=== PATIENT | male | born 1975 | race Hispanic/Latino ===

== ENCOUNTER 2017-03-03 08:26 | Emergency (ER) | payer OTHER, SELFPAY ==
--- NOTE | 2017-03-03 09:01 | RAD ---
RADIOGRAPH CHEST 1 VIEW: HISTORY: 41-year-old male with chest pain. FINDINGS: There are no air space densities, pulmonary edema, pneumothorax, or cardiomegaly. The lateral costop hrenic angles are sharp. IMPRESSION: No acute cardiopulmonary findings. violet [] POS: ANDRE[facility]
[2017-03-03 09:09] LABS: #Basophils 0.1 thou/uL (0.0-0.2); #Lymphocytes 1.8 thou/uL (1.20-3.40); #Monocytes 0.4 thou/uL (0.11-0.59); #Neutrophils 6.2 thou/uL (1.40-6.50); %Basophils 0.6 % (0.0-1.0); %Eosinophils 0.3 % (0.0-10.0); %Lymphocytes 20.8 % (21.0-51.0); %Monocytes 4.3 % (0.0-10.0); %Neutrophils 73.9 % (42.0-75.0); Hemoglobin 15.9 g/dL (14.0-18.0); Mean Corpuscular HGB CONC 33.3 g/dL (32.0-36.0); Mean Corpuscular Hemoglobin 31.6 pg (27.0-31.0); Mean Corpuscular Volume 94.9 fl (80.0-94.0); Mean Platelet Volume 6.5 fL (7.4-10.4); Platelet Count 334 thou/uL (130-400); RBC Distribution Width 11.8 % (11.5-14.5); Red Blood Cell (RBC) Count 5.05 mill/uL (4.70-6.10); White Blood Cell (WBC) Count 8.4 thou/uL (4.8-10.8)
[2017-03-03 09:19] LABS: ALT (SGPT) 20 U/L (8-55); AST (SGOT) 23 U/L (5-34); Alkaline Phosphatase 73 U/L (40-150); Anion Gap 17 mmol/L (10-20); BUN (Urea Nitrogen) 18 mg/dL (8.9-20.6); Bilirubin, Total 1.2 mg/dL (0.2-1.2); Calc. Creatinine Clearance 0 mL/min (70-130); Calcium 10.4 mg/dL (7.8-10.44); Carbon Dioxide 23 mmol/L (22-29); Chloride 102 mmol/L (98-107); Estimated GFR-MDRD 90; Globulin 3.7 g/dL (2.4-3.5); Glucose 123 mg/dL (70-105); Potassium 3.5 mmol/L (3.5-5.1); Protein, Total 8.7 g/dL (6.0-8.3); Sodium 138 mmol/L (136-145)
[2017-03-03 09:23] LABS: CKMB 2.8 ng/mL (0-6.6); Troponin I Less than 0.010 ng/mL (< 0.028)
== END 2017-03-03 12:26 | disposition home or self-care (01) ==
LOC: ERS 08:26
DX: F43.9 Reaction to severe stress, unspecified (principal); F41.9 Anxiety disorder, unspecified
CPT/HCPCS: 71045; 80053; 82553; 84484; 85025; 93005

== ENCOUNTER 2019-03-01 12:25 | Inpatient (IN) | payer SELFPAY ==
[2019-03-01 12:48] LABS: #Basophils 0.1 thou/uL (0.0-0.2); #Lymphocytes 2.8 thou/uL (1.20-3.40); #Monocytes 0.5 thou/uL (0.11-0.59); #Neutrophils 7.2 thou/uL (1.40-6.50); %Basophils 0.7 % (0.0-1.0); %Eosinophils 0.1 % (0.0-10.0); %Lymphocytes 26.4 % (21.0-51.0); %Monocytes 4.8 % (0.0-10.0); %Neutrophils 67.9 % (42.0-75.0); Mean Corpuscular HGB CONC 33.4 g/dL (32.0-36.0); Mean Corpuscular Hemoglobin 30.6 pg (27.0-31.0); Mean Corpuscular Volume 91.6 fL (78.0-98.0); Mean Platelet Volume 6.8 fL (7.4-10.4); Platelet Count 279 thou/uL (130-400); RBC Distribution Width 11.9 % (11.5-14.5); Red Blood Cell (RBC) Count 5.22 mill/uL (4.70-6.10); White Blood Cell (WBC) Count 10.5 thou/uL (4.8-10.8)
--- NOTE | 2019-03-01 12:54 | CT ---
CT Brain WO Con: 03/01/2019 12:39 PM CLINICAL HISTORY: Headache. IMAGING TECHNIQUE: Multiple CT images were obtained of the brain without IV contrast. COMPARISON: None. FINDINGS: Brain: There is a area of hypodensity involving the medial aspect of the right cerebellum suspicious for an acute to subacute cerebellar hemisphere infarct. There is remote infarct involving the anterior left thalamus. No acute intracranial hemorrhage is evident. Ventricles: Normal. No hydrocephalus.. Skull: Intact.. Visualized Paranasal sinuses: Clear.. Mastoid air cells:Clear. Extracranial soft tissues:Normal. IMPRESSION: 1. Acute to subacute infarct involving the medial right cerebellar hemisphere. Follow-up MRI of the b rain is recommended for further characterization. 2. Remote lacunar infarct involving the anterior left thalamus.
[2019-03-01] MEDS ORDERED: Acetaminophen 500 MG TAB ONE (13:02)
[2019-03-01] MEDS ORDERED: Metoclopramide HCl 10 MG/2 ML VIAL ONE (13:03)
[2019-03-01] MEDS ORDERED: diphenhydrAMINE 50 MG/ML VIAL ONE (13:03)
[2019-03-01 13:12] LABS: ALT (SGPT) 26 U/L (8-55); AST (SGOT) 25 U/L (5-34); Albumin 4.9 g/dL (3.5-5.0); Alkaline Phosphatase 77 U/L (40-110); Anion Gap 12 mmol/L (10-20); BUN (Urea Nitrogen) 22 mg/dL (8.9-20.6); Bilirubin, Total 0.6 mg/dL (0.2-1.2); CK (CPK) 258 U/L (30-200); Calc. Creatinine Clearance 0 mL/min (70-130); Calcium 9.3 mg/dL (7.8-10.44); Carbon Dioxide 28 mmol/L (22-29); Chloride 103 mmol/L (98-107); Estimated GFR-MDRD 85; Globulin 3.7 g/dL (2.4-3.5); Glucose 109 mg/dL (70-105); Potassium 3.6 mmol/L (3.5-5.1); Protein, Total 8.6 g/dL (6.0-8.3); Sodium 139 mmol/L (136-145)
[2019-03-01] MEDS ORDERED: Iopamidol 370 76% 100 ML VIAL ONE (13:44)
[2019-03-01] MEDS ORDERED: Clopidogrel Bisulfate 75 MG TAB ONE (13:53)
[2019-03-01] MEDS ORDERED: Magnevist 469MG/ML 20 ML VIAL ONE (14:19)
--- NOTE | 2019-03-01 14:24 | PDOC.FPRHP ---
- History of Present Illness Chief Complaint: dizziness, weakness History of Present Illness: Patient is a 43M with no PMHx that has been experiencing dizziness and weakness for the past 2 weeks. Per the patient he started to have dizziness, lightheadedness, and posterior headache that began 2 weeks ago. He also reports that this is accompanied by weakness. He denies that anything like this has ever happened to him before. He has no stroke hx, no OR hx, and takes no medications. He reports that his headache has been intermittent throughout the last 2 weeks, and has not tried anything to make it better. He also reports that he has some mild chest pain that started after he fell at work 2 days ago because he was dizzy. Denies SOB, abd pain, n/v. ED Course: 300mg plavix, 10mg reglan, 25mg benadryl, 1g tylenol, 1L NS - Allergies/Adverse Reactions Allergies Allergy/AdvReac Type Severity Reaction Status Date / Time No Known Drug Allergies Allergy Verified 12/24/16 21:44 - Home Medications Medication Instructions Recorded Confirmed Type No Known 03/01/19 03/01/19 History - History PMHx: None PSHx: None FHx: No family hx of strokes or OR Social: non smoker, no etoh use, no drug use - Review of Systems General: denies: fever/chills, weight/appetite/sleep changes Eyes: denies: eye pain, vision changes ENT: denies: nasal congestion, rhinorrhea Respiratory: denies: cough, shortness of breath Cardiovascular: reports: chest pain (intermittent, started after falling at work ). denies: edema Gastrointestinal: reports: nausea, vomiting. denies: diarrhea Genitourinary: denies: dysuria, polyuria Skin: denies: lesions, jaundice Musculoskeletal: denies: tenderness, stiffness Neurological: reports: other (dizziness). denies: syncope, seizure Psychological: denies: anxiety, depression - Vital signs BP: [126/79] HR: [77] RR: [18] Tmax: [98.5] Pox: [98]% on [RA] Wt: [65.7kg] - Physical Exam Constitutional: NAD, awake, alert and oriented HEENT: EOMI, MMM Neck: supple, FROM Chest: no-tender to palpation, no lesions Heart: RRR, normal S1/S2 Lungs: CTAB, no wheezing Abdomen: soft, non-tender Musculoskeletal: normal structure, normal tone Neurological: normal sensation, other (slow Dysdiadochokinesia) Skin: no rash/lesions, good turgor Heme/Lymphatic: no unusual bruising or bleeding, no purpura FMR H&P: Results - Labs Result Diagrams: 03/01/19 12:36 03/01/19 12:36 Lab results: WBC 10.5 thou/uL (4.8-10.8) 03/01/19 12:36 Hgb 16.0 g/dL (14.0-18.0) 03/01/19 12:36 Hct 47.8 % (42.0-52.0) 03/01/19 12:36 MCV 91.6 fL (78.0-98.0) 03/01/19 12:36 Plt Count 279 thou/uL (130-400) 03/01/19 12:36 Neutrophils % 67.9 % (42.0-75.0) 03/01/19 12:36 Sodium 139 mmol/L (136-145) 03/01/19 12:36 Potassium 3.6 mmol/L (3.5-5.1) 03/01/19 12:36 Chloride 103 mmol/L (98-107) 03/01/19 12:36 Carbon Dioxide 28 mmol/L (22-29) 03/01/19 12:36 BUN 22 mg/dL (8.9-20.6) H 03/01/19 12:36 Creatinine 0.96 mg/dL (0.7-1.3) 03/01/19 12:36 Glucose 109 mg/dL (70-105) H 03/01/19 12:36 Calcium 9.3 mg/dL (7.8-10.44) 03/01/19 12:36 Total Bilirubin 0.6 mg/dL (0.2-1.2) 03/01/19 12:36 AST 25 U/L (5-34) 03/01/19 12:36 ALT 26 U/L (8-55) 03/01/19 12:36 Alkaline Phosphatase 77 U/L (40-110) 03/01/19 12:36 Creatine Kinase 258 U/L (30-200) H 03/01/19 12:36 Serum Total Protein 8.6 g/dL (6.0-8.3) H 03/01/19 12:36 Albumin 4.9 g/dL (3.5-5.0) 03/01/19 12:36 - EKG Interpretation EKG: NSR - Radiology Interpretation CT scan - head Status: report reviewed by me (R cerebellar infart, remote lacunar infarct anterior L thalamus) FMR H&P: A/P - Problem List (1) Cerebellar stroke Current Visit: Yes Status: Acute Code(s): I63.9 - CEREBRAL INFARCTION, UNSPECIFIED - Plan Patient is a 43M with no PMHx admitted for R cerebellar infarct #R Cerebellar infarct -dizziness, posterior headache x2 weeks -CT head: R cerebellar infarct with remote lacunar anterior L thalamus infarct -FLP, TSH, A1C -started on plavix in ED, but patient is uninsured; will transition to ASA -Brain MRI -CTA Head/Neck -atorvastatin -neurology consult, Dr. Montero, appreciate recs -NPO until bedside swallow -PT/OT Dispo: inpatient for CVA workup, neurology consulted, appreciate recs Code: Full PCP: CC FMR H&P: Upper Level - Plan Date/Time: 03/01/19 1424 IRonen DO, have evaluated this patient and agree with findings/plan as outlined by nutrition intern resident. Pertinent changes/additions are listed here. HPI Mr. Wilder is a 43 yo male presenting to the ED with a 2 week hx of dizziness Today he reports syncope with fall, for the past two weeks he has had nausea associated with dizziness that has not gotten better or worse, he denies any complaints prior to two weeks ago, no chest pain, shortness of breath, fever, chills or vision changes. He has no known pmhx, does not take any daily medications PE General: NAD HEENT: NCAT, no bruits b/l Chest: even inspiratory and expiratory effort, no retractions, CTAB, RRR, no murmurs Abdomen: non distended, NTTP MSK: no weakness, or loss of ROM noted Extremities: non-edematous, pulses present Neuro: CN2-12 intact, normal sensation, strength. Proprioception, reflexes wnl See nutrition intern portion for full ROS, PE, labs and vitals. A/P Posterior cerebellar stroke - CT scan +, no deficits noted besides disequilibrium - cbc, cmp wnl - tsh, flp, echo, cta neck, mri pending - will start asa in am - pt/ot to eval/ treat - npo pending speech eval Dispo: admit to inpt stroke for further risk stratification and treatment, anticipate>48hr stay Addendum - Attending - Attending Attestation Date/Time: 03/01/191919 I personally evaluated the patient and discussed the management with Dr. Leonard I agree with the History, Examination, Assessment and Plan documented above with any addition or exceptions noted below. See my event note for details.
--- NOTE | 2019-03-01 14:59 | PDOC.EVN ---
Addendum - Attending - Attending Attestation Date/Time: 03/01/19 8603 I personally evaluated the patient and discussed the management with Dr. Burgess/ Horacio I agree with the History, Examination, Assessment and Plan documented above with any addition or exceptions noted below. 43 yo HM PMH HTN and limited jose follow up. Presents with 2 day hx of intermittent posterior headache and vertigo. Denies trauma or fall. no prior CVA. Exam remarkable for faint horizontal nystagmus. Labs unremarkable. EKG NSR with no ST changes. CT brain showed right cerebellar CVA and old thalamic infarct. Admit for Cerebellar CVA. MRI brain tomorrow. CTA Head and Neck to evaluate vasculature. TTE for hear evaluation. Stroke team consult. Since outside first 24 hr, treat HTN if indicated. Risk stratify with FLP and A1c. Inpatient, >2 midnights.
[2019-03-01] MEDS ORDERED: Ondansetron ODT 4 MG TAB PO PRN (15:19)
[2019-03-01 15:21] VITALS: BMI 26.3
--- NOTE | 2019-03-01 16:47 | CT ---
INDICATION: Stroke COMPARISON: None Correlation: Brain MRI 03/01/2019 TECHNIQUE: CT angiogram of the head and neck are performed in the axial plane. Three-dimensional refo rmatted images are submitted for interpretation. FINDINGS: CTA OF THE HEAD WITH AND WITHOUT CONTRAST: POSTCONTRAST CT OF BRAIN: Pathologic enhancement: No pathologic enhancement the brain. Loss of king-white matter differentiatio n involving the right cerebellar hemisphere is noted. Postcontrast soft tissue neck CT: Sinuses: Adequate aeration. Orbits: Bilateral ocular lenses are appropriately located. Both globes are intact. Retrobulbar fat is preserved. Symmetric attenuation the optic nerves and ocular rectus muscles. Salivary glands:Symmetric attenuation of the parotid and submandibular glands Thyroid gland: 0.9 x 0.6 cm hypodensity in the right thyroid lobe. Lymph nodes: Upper normal left level 2 lymph node measures 1.0 x 0.9 cm. Enlarged right level 1 lymph node measuring 1.2 x 0.7 cm. Paraspinal muscles: Symmetric attenuation of the sternocleidomastoid muscles. Appropriate attenuation of the paraspinal muscles. Cervical spine:Vertebral body height is maintained. No fracture. Varying degrees of central canal adriana nosis and neural foraminal narrowing due to degenerative change. Limited evaluation by technique. Upper mediastinum and lung apices: Chronic changes lung parenchyma. Incidentals: Periapical lucencies involving multiple right mandibular teeth compatible with periapica l abscess. No evidence of obvious mandibular destruction. CTA OF THE NECK WITH CONTRAST: Aorta: Appropriate enhancement and luminal diameter of the ascending thoracic aorta and aortic arch a nd proximal descending thoracic aorta. Right carotid artery: Right carotid artery origin, common carotid artery, carotid bifurcation and int ernal carotid artery have appropriate enhancement and luminal diameter. Limited evaluation due to motion degradation. Left carotid: Left carotid artery origin, common carotid, carotid bifurcation and internal carotid ar rodri have appropriate and luminal diameter. Limited evaluation due to motion and patient Subclavian arteries:Patent and symmetric Vertebral arteries:Patent throughout the course in the neck and essentially codominant. CTA OF THE BRAIN: Intracranial internal carotid arteries:Appropriate enhancement and luminal diameter Anterior circulation: Diminutive left A1 segment likely due to congenital variant. Bilateral A2 segme nts are unremarkable. Bilateral M1 segments have appropriate enhancement and luminal diameter. Proximal MCA branches are symmetric. Intracranial vertebral arteries: Appropriate enhancement and luminal diameter. Visualized PICA artery origins are unremarkable Posterior circulation: Both vertebral arteries supply a normal appearing basilar artery. No significa nt stenosis or occlusion. Appropriate enhancement and luminal diameter bilateral P1 segments. IMPRESSION: 1. No significant stenosis of the cervical carotid arteries based upon NASCET criteria. 2. Unremarkable anterior circulation at the level [place] of He 3. Unremarkable posterior circulation at the level [place] of He. 4. Findings compatible with known right cerebellar infarct. 5. Nonspecific mildly enlarged lymph nodes.
[2019-03-01] MEDS: Acetaminophen 325 MG TAB PO PRN (17:01)
--- NOTE | 2019-03-01 17:34 | MRI ---
BRAIN MRI WITH AND WITHOUT CONTRAST 03/01/19 COMPARISON: None. HISTORY: Headache, vomiting, assess for a cerebellar infarction. TECHNIQUE: Multiplanar and multisequence MR imaging of the brain is provided with and without contrast. FINDINGS: The axial gradient echo imaging demonstrates no evidence for intracranial hemorrhage. There is a large area of restricted diffusion within the posterior inferior medial aspect of the righ t cerebellar hemisphere consistent with acute infarction on the basis of a right posterior inferior c erebral artery territory infarction. This area of infarction measures at least 3.7 x 3.[address] AP and transverse dimension. There is associated mass effect on the posterior lateral aspect of t he fourth ventricle on the right which is mildly effaced. The area of acute infarction demonstrates i ncreased T2 and FLAIR signal on the basis of cytotoxic edema. Further superiorly within the left occipital lobe there are two smaller areas of acute infarction zackery suring 1.1 cm and 5 mm respectively. These areas of acute infarction also demonstrate mild increased T2 and FLAIR signal on the basis of cytotoxic edema. Postcontrast imaging demonstrates abnormal curvilinear areas of cortically based enhancement of the i nferior medial aspect of the right occipital lobe. This area of abnormal enhancement within the right occipital lobe does not demonstrate restricted diffusion suggesting an area of subacute infarction w ithin the right TUBER MACHINE OPERATOR HELPER territory. Arterial flow voids at the axial level of the skull base appear grossly unremarkable on the T2 weight ed imaging. The imaged paranasal sinuses and mastoid air cells are well aerated. No additional area of abnormal enhancement is noted. IMPRESSION: Prominent area of acute infarction within the inferomedial aspect of the right cerebellar hemisphere suggesting acute right PICA infarction. There are also small foci of acute infarction within the left TUBER MACHINE OPERATOR HELPER territory. Enhancement of the cortex within the occipital lobe on the right suggest subacute rig ht TUBER MACHINE OPERATOR HELPER infarction. These findings suggest multiple posterior circulation infarctions of varying ages. There is related mass effect on the fourth ventricle which is mildly effaced. Close follow-up is thus advised. Stephane Leonard made aware via phone by Dr. Blair at 3:45pm on 03/01/2019. POS: [facility]
[2019-03-01] MEDS: Atorvastatin Calcium 40 MG TAB PO SCH (20:52)
--- NOTE | 2019-03-02 01:22 | CON ---
DATE OF CONSULTATION: 03/01/2019 CONSULTING PHYSICIAN: Hospitalist Service. IMPRESSION: Posterior circulation stroke with occipital and cerebellar lobe damage. PLAN: 1. Aspirin and statin. 2. Echocardiogram. HISTORY OF PRESENT ILLNESS: Mr. Wilder is a previously healthy 43-year-old man, who reports only having a history of headaches. He came in with severe headache with some nausea and dizziness. According to his daughter, he is feeling much better now. His MRI of the brain showed evidence of a cerebellar and left occipital lobe infarct that were acute. His CT angiogram does not show any stenosis. His vital signs have been fine since admission. He has no past history of hypertension, diabetes, hyperlipidemia, tobacco or drug use. He has never had any symptoms like this in the past. He feels like he is back to normal at this point. PAST MEDICAL HISTORY: Otherwise negative. ALLERGIES: NONE REPORTED. SOCIAL HISTORY: No tobacco use. FAMILY HISTORY: Negative for stroke or heart disease. MEDICATION LIST: None. REVIEW OF SYSTEMS: Ten-system review of systems is otherwise negative. PHYSICAL EXAMINATION: GENERAL: He is a healthy-appearing middle-aged man, in no acute distress. VITAL SIGNS: Reviewed and are unremarkable. HEENT: Pupils are equal and reactive. There is no nystagmus present. Conjunctivae clear. Oropharynx clear. NECK: Supple. EXTREMITIES: No cyanosis or edema. NEUROLOGIC: He was alert and cooperative. He followed commands appropriately. His speech was clear and there was no facial asymmetry. He had good strength bilaterally. There was no tremor or dysmetria. Sensation was intact to touch. Gait was not tested. LABORATORY DATA: EKG shows normal sinus rhythm. SUMMARY: Unusual case of a healthy middle-aged man presents with stroke in both the occipital and cerebellar lobes suggesting possible cardioembolic event given that there was no primary thrombus of the posterior cerebral artery. We will review his echocardiogram results, but at this time, we would continue with statin and antiplatelet therapy. Job ID: [id number]
[2019-03-02 04:59] LABS: Hemoglobin A1c 5.9 % (4.0-6.0)
[2019-03-02 05:12] LABS: Cardiac Risk 4.7 (Less than 4.5)
--- NOTE | 2019-03-02 05:47 | PDOC.FM ---
- Subjective Subjective: Patient doing well this morning, reports of some dizziness and a headache but no new deficits. Discussed with patient, through whirley operator, that we are planning on doing an echo today to continue to look for the source for his strokes. Discussed continuation of asa and statin. Patient agreeable with plan of care. - Objective Vital Signs & Weight: Vital Signs (12 hours) Temp Pulse Resp BP Pulse Ox 03/02/19 04:00 98.6 F 66 20 114/70 99 03/02/19 00:00 99.3 F 69 20 121/75 100 03/01/19 20:00 98.3 F 62 20 131/77 97 Weight Weight 67.387 kg I&O: 02/28/19 03/01/19 03/02/19 06:59 06:59 06:59 Intake Total 300 Balance 300 Result Diagrams: 03/01/19 12:36 03/01/19 12:36 EKG Reviewed by me: Yes (sinus 60s-70s) Phys Exam - Physical Examination Constitutional: NAD HEENT: moist MMs, sclera anicteric Neck: supple, full ROM Respiratory: no wheezing, clear to auscultation bilateral Cardiovascular: RRR, no significant murmur Gastrointestinal: soft, non-tender Musculoskeletal: no edema, pulses present Neurological: moves all 4 limbs slow finger-nose and dysdiadochokinesia, though patient can do both Psychiatric: normal affect, A&O x 3 Skin: no rash, normal turgor Dx/Plan (1) Cerebellar stroke Code(s): I63.9 - CEREBRAL INFARCTION, UNSPECIFIED Status: Acute - Plan Plan: Patient is a 43M with no PMHx admitted for R cerebellar infarct #R Cerebellar infarct -dizziness, posterior headache x2 weeks -CT head: R cerebellar infarct with remote lacunar anterior L thalamus infarct -Brain MRI: acute infarct of the R cerebellar hemisphere (acute R PICA), small foci of acute infarction of the L ASSOCIATE PROFESSOR [employer]IA, subacute R [employer]OCIATE PROF[employer]OR [employer] infarction, related mass effect on the 4th ventricle -Neurosurgery consulted, Ezekiel Torres, rec that neurosurgery not be pursued at this time, and does not recommend steroids or other therapies aside from asa and statin at this time -CTA Head/Neck: No significant stenosis of the carotid arteries, unremarkable circulation -FLP: triglycerides 154, total chol 224, LDL 145, HDL 48 -TSH: 1.075 -A1C: 5.9 -started on plavix in ED, but patient is uninsured; transitioned to ASA -atorvastatin -neurology consult, Dr. Montero, appreciate recs -rec continued statin and anticoagulation while the source of the patient's stroke is worked up -PT/OT -echo pending Dispo: inpatient for CVA workup, echo today, will follow Code: Full PCP: CC
[2019-03-02] MEDS: Acetaminophen 325 MG TAB PO PRN ×2 (06:45→15:33)
[2019-03-02] MEDS: Aspirin 325 MG TAB PO SCH (08:54)
--- NOTE | 2019-03-02 11:05 | PRG ---
DATE OF SERVICE: 03/02/2019 This as an addendum to the note of Dr. Ofelia Leonard. I have examined the patient and discussed the case with Dr. Leonard. I agree with her assessment and plan. Mr. Wilder is a pleasant 43-year-old male, who has been admitted with a cerebellar stroke. Thus far, his CTA of the head and neck did not show any occlusions or carotid artery disease. We are awaiting the results of an echocardiogram. Should this also not show a source, it would probably be a good idea to set Mr. Wilder up for a Holter monitor or event recorder in the event that arrhythmia is causing his stroke. I would also recommend to do a thrombophilia workup to make sure he is not having some type of clotting disorder that could lead to stroke. In the event, we are addressing the traditional factors with aspirin and atorvastatin. He has no history of hypertension and his blood pressure now is 123/79. He will likely be ready for discharge in a day or two. Job ID: [id number]
[2019-03-02 12:38] LABS: Prothrombin Time 12.9 SEC (12.0-14.7)
[2019-03-02 12:39] LABS: D-Dimer Test 0.39 *mcg/mL (0.27-0.43)
[2019-03-02 12:59] LABS: Amphetamine Not Detected (NotDetected); Barbiturates Screen Not Detected (NotDetected); Benzodiazepine Screen Not Detected (NotDetected); Cocaine Metabolite Screen Not Detected (NotDetected); Medtox Reader # READER 4; Methadone Not Detected (NotDetected); Methamphetamine Not Detected (NotDetected); Opiate Screen Not Detected (NotDetected); Oxycodone Screen Not Detected (NotDetected); Phencyclidine (PCP) Not Detected (NotDetected); THC/Cannabinoid Screen Not Detected (NotDetected); Tricyclic Screen Not Detected (NotDetected)
[2019-03-02 13:00] LABS: Medtox Control Line Valid? VALID (VALID)
[2019-03-02 15:05] LABS: Cardiolipin IgA Ab 5.7 APL-U/mL (<14 Negative); Cardiolipin IgM Ab 4.9 MPL-U/mL (<10 Negative); EliA APS New Method **** NEW METHOD ****
--- NOTE | 2019-03-02 17:55 | CON ---
DATE OF CONSULTATION: 03/02/2019 REASON FOR CONSULTATION: Acute CVA. HISTORY OF PRESENT ILLNESS: Mr. Wilder is a pleasant 43-year-old gentleman, [place]-speaking mostly, who comes to the hospital for having dizziness and weakness for the past 2 weeks. He has been lightheaded, dizzy with a little headache started about 2 weeks ago. He was admitted and evaluated and was found to have posterior circulation CVA. There is evidence of an acute stroke and some other subacute and more chronic looking strokes in the posterior circulation. Cardiology has been consulted to evaluate cardioembolic sources of this stroke. On my evaluation, Mr. Wildre denies any chest pain, tightness, or pressure. No shortness of breath. No syncope or presyncope. Only the symptoms he presented with which are minimally changed. Dr. Montero evaluated him and diagnosed with a posterior circulation stroke with occipital and cerebellar lobe damage, recommended aspirin and statin. Echocardiogram was done and is pending, but no bubble study was done. PAST MEDICAL HISTORY: None. PAST SURGICAL HISTORY: None. FAMILY HISTORY: No early coronary artery disease or strokes in the family members. SOCIAL HISTORY: No alcohol, tobacco, or drugs. 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 REVIEW OF SYSTEMS: A 12-point review of systems was done and it is all negative unless stated in the history of present illness. OUTPATIENT MEDICATIONS: None. ALLERGIES: NO KNOWN DRUG ALLERGIES. PHYSICAL EXAMINATION: VITAL SIGNS: Temperature 98.1, pulse 77, respiratory rate 16, saturating 98% on room air, and blood pressure 132/85. GENERAL: Awake, alert, oriented x3, and in no distress. HEENT: Normocephalic and atraumatic. NECK: Supple. LUNGS: Clear. CARDIOVASCULAR: S1 and S2. No S3 or S4. No murmurs. No rubs. ABDOMEN: Soft. Positive bowel sounds. EXTREMITIES: No edema. SKIN: Warm and dry. LABORATORY DATA: Laboratory work was reviewed. CBC is unremarkable. Hypercoagulable panel is pending. Chemistries are unremarkable except for a CK of 258. His triglycerides were 154, total cholesterol 224, but LDL only 145 and HDL of 48. UDS was negative for any substances. Toxicology, so far has been negative. CT of the [place] of [place] with contrast showed no significant stenosis. Unremarkable anterior circulation and posterior circulation. There are some findings compatible with known right cerebellar infarct and nonspecific mildly enlarged lymph nodes. ASSESSMENT: Acute CVA. PLAN: 1. Certainly concern for cardioembolic phenomena is high on the list. We will plan on doing a transesophageal echo to evaluate for any shunts. We will do this, hopefully, tomorrow with bubble study. 2. I agree with statin and he will most likely be a candidate for Plavix. 3. We will need some sort of monitoring as an outpatient. We will set it up as an outpatient when he comes back to see us. 4. We spoke at length about the risks and benefits of the transesophageal echo procedure. Risks included, but not limited to damage of the teeth, damage of the vocal cords, a rupture of the esophagus requiring surgical intervention. He verbalized understanding of this and agrees to proceed. 5. More recommendations pending results of transesophageal echo. Job ID: [id number]
[2019-03-02] MEDS: Atorvastatin Calcium 40 MG TAB PO SCH (21:45)
--- NOTE | 2019-03-03 05:33 | PDOC.FM ---
- Subjective Subjective: Pt denies any complaints this morning - no headache, no weakness, no loss of sensation. Pt had a lengthy discussion w/ Dr. Stockton yesterday and has agreed to undergo KEILA and bubble study today. Pt understands the procedure and what we are assessing. He understands he will likely need follow up as an outpt for further assessment of the cause of his CVA. - Objective Vital Signs & Weight: Vital Signs (12 hours) Temp Pulse Resp BP Pulse Ox 03/03/19 04:00 98.6 F 68 16 100/61 98 03/03/19 00:00 98.6 F 76 16 127/83 98 03/02/19 21:50 99 03/02/19 20:00 98.7 F 70 16 122/77 99 Weight Admit Weight 67.387 kg Weight 67.387 kg I&O: 03/01/19 03/02/19 03/03/19 06:59 06:59 06:59 Intake Total 780 Balance 780 Result Diagrams: 03/01/19 12:36 03/01/19 12:36 Phys Exam - Physical Examination Constitutional: NAD HEENT: moist MMs, sclera anicteric Neck: full ROM Respiratory: no wheezing, no rales, no rhonchi, clear to auscultation bilateral Cardiovascular: RRR, no significant murmur, no rub Gastrointestinal: soft, non-tender Musculoskeletal: no edema, pulses present Neurological: non-focal, normal sensation, moves all 4 limbs Psychiatric: normal affect, A&O x 3 Skin: cap refill <2 seconds Dx/Plan (1) Cerebellar stroke Code(s): I63.9 - CEREBRAL INFARCTION, UNSPECIFIED Status: Acute - Plan Plan: Patient is a 43M with no PMHx admitted for R cerebellar infarct Right Cerebellar infarct -CT head: R cerebellar infarct with remote lacunar anterior L thalamus infarct -Brain MRI: acute infarct of the R cerebellar hemisphere (acute R PICA), small foci of acute infarction of the L SAND WORKER, subacute R SAND WORKER infarction, related mass effect on the 4th ventricle -Neurosurgery consulted, Ezekiel Torres, rec that neurosurgery not be pursued at this time, and does not recommend steroids or other therapies aside from asa and statin at this time -CTA Head/Neck: No significant stenosis of the carotid arteries, unremarkable circulation -FLP: triglycerides 154, total chol 224, LDL 145, HDL 48 -TSH: 1.075 -A1C: 5.9 -started on plavix in ED, but patient is uninsured; transitioned to ASA -atorvastatin -neurology consult, Dr. Montero, appreciate recs -rec continued statin and anticoagulation while the source of the patient's stroke is worked up -PT/OT -Cardiology: Dr. Stockton was consulted. Echo performed showing 2/3 diastolic dysfunction. Plans for KEILA and bubble study today to assess for shunt - Likely will need some form of cardiac monitoring as outpt if source not identified Dispo: inpatient for CVA workup, KEILA today, will follow Code: Full PCP: CC Addendum - Attending - Attending Attestation Date/Time: 03/03/19 [id number] I personally evaluated the patient and discussed the management with Dr. Miller I agree with the History, Examination, Assessment and Plan documented above with any addition or exceptions noted below. Patient for KEILA/Bubble study r/o PFO/shunt today.
[2019-03-03] MEDS: Aspirin 325 MG TAB PO SCH (09:11)
--- NOTE | 2019-03-03 16:09 | PDOC.CPN ---
- Subjective Date: 03/03/19 Time: 16:08 Interval history: No new issues. - Review of Systems General: denies: fever/chills, weight/appetite/sleep changes, night sweats, fatigue Respiratory: denies: cough, congestion, shortness of breath, exercise intolerance Cardiovascular: denies: chest pain, palpitation, edema, paroxysmal nocturnal dyspnea, orthopnea Gastrointestinal: denies: nausea, vomiting, diarrhea, constipation, abd pain, GI bleeding Musculoskeletal: denies: pain, tenderness, stiffness, swelling, arthritis/ arthralgias Neurological: denies: numbness, syncope, seizure, weakness - Objective Allergies/Adverse Reactions: Allergies Allergy/AdvReac Type Severity Reaction Status Date / Time No Known Drug Allergies Allergy Verified 03/02/19 08:53 Visit Medications: Current Medications Acetaminophen (Tylenol) 650 mg PO Q4H PRN PRN Reason: Headache/Fever/Mild Pain (1-3) Last Admin: 03/02/19 15:33 Dose: 650 mg Aspirin (Aspirin) 325 mg PO DAILY [facility] Last Admin: 03/03/19 09:11 Dose: 325 mg Atorvastatin Calcium (Lipitor) 40 mg PO HS [facility] Last Admin: 03/02/19 21:45 Dose: 40 mg Ondansetron HCl (Zofran Odt) 4 mg PO Q6H PRN PRN Reason: Nausea/Vomiting Vital Signs & Weight: Vital Signs Temp Pulse Pulse Pulse Resp BP BP 03/03/19 12:00 98.6 F 85 16 03/03/19 10:27 73 77 132/74 143/79 H 03/03/19 08:05 98.4 F 65 16 BP Pulse Ox 03/03/19 12:00 121/71 97 03/03/19 10:27 03/03/19 08:05 111/73 97 Admit Weight 148 lb 9 oz Weight 148 lb 9 oz - Physical Exam General: alert & oriented x3 HEENT: mucus membranes moist Neck: supple neck Cardiac: regular rate and rhythm, no murmur Lungs: normal breath sounds Neuro: no lateralizing findings Abdomen: active bowel sounds Extremities: no edema Skin: clear Musculoskeletal: normal range of motion - Labs Result Diagrams: 03/01/19 12:36 03/01/19 12:36 Troponin/CKMB Troponin I Less than 0.010 ng/mL (< 0.028) 03/01/19 12:36 - Telemetry Sinus rhythms and dysrhythmias: sinus rhythm - Assessment/Plan Assessment/Plan: 1. Acute CVA PLAN: - KEILA to be done tuesday to evaluate for shunts.
[2019-03-03] MEDS: Atorvastatin Calcium 40 MG TAB PO SCH (21:26)
[2019-03-03] MEDS: Acetaminophen 325 MG TAB PO PRN (21:26)
--- NOTE | 2019-03-04 05:41 | PDOC.FM ---
- Subjective Subjective: Pt denies any complaints at this time. States he did not have his KEILA yesterday due to having eaten. No events overnight. Had complained of mild dizziness yesterday - HINTS exam at that time was negative. - Objective Vital Signs & Weight: Vital Signs (12 hours) Temp Pulse Resp BP Pulse Ox 03/04/19 04:00 97.9 F 75 16 120/73 99 03/04/19 00:00 98.1 F 79 16 125/80 99 03/03/19 20:00 98.3 F 76 16 118/75 97 Weight Admit Weight 67.387 kg Weight 67.387 kg I&O: 03/02/19 03/03/19 03/04/19 06:59 06:59 06:59 Intake Total 780 360 Balance 780 360 Result Diagrams: 03/01/19 12:36 03/01/19 12:36 Phys Exam - Physical Examination Constitutional: NAD HEENT: moist MMs, sclera anicteric Neck: full ROM Respiratory: no wheezing, no rales, no rhonchi, clear to auscultation bilateral Cardiovascular: RRR, no significant murmur, no rub Gastrointestinal: soft, non-tender Musculoskeletal: no edema, pulses present Neurological: moves all 4 limbs Psychiatric: normal affect, A&O x 3 Skin: no rash, cap refill <2 seconds Dx/Plan (1) Cerebellar stroke Code(s): I63.9 - CEREBRAL INFARCTION, UNSPECIFIED Status: Acute - Plan Plan: Patient is a 43M with no PMHx admitted for R cerebellar infarct Right Cerebellar infarct -CT head: R cerebellar infarct with remote lacunar anterior L thalamus infarct -Brain MRI: acute infarct of the R cerebellar hemisphere (acute R PICA), small foci of acute infarction of the L RECONCILIATION ANALYST, subacute R RECONCILIATION ANALYST infarction, related mass effect on the 4th ventricle -Neurosurgery consulted, Ezekiel Torres, rec that neurosurgery not be pursued at this time, and does not recommend steroids or other therapies aside from asa and statin at this time -CTA Head/Neck: No significant stenosis of the carotid arteries, unremarkable circulation -neurology consult, Dr. Montero, appreciate recs -rec continued statin and anticoagulation while the source of the patient's stroke is worked up -PT/OT -Cardiology: Dr. Stockton was consulted. Echo performed showing 2/3 diastolic dysfunction. Plans for KEILA and bubble study to assess for shunt tomorrow - Likely will need some form of cardiac monitoring as outpt if source not identified -Telemetry continues to show NSR Dispo: inpatient for CVA workup, KEILA tomorrow, will continue to monitor Code: Full Diet: NPO at midnight PCP: LEANDRA Addendum - Attending - Attending Attestation Date/Time: 03/04/19 0082 I personally evaluated the patient and discussed the management with Dr. Miller I agree with the History, Examination, Assessment and Plan documented above with any addition or exceptions noted below. Further w/u with KEILA is planned. Patient would benefit from balance therapy.
[2019-03-04] MEDS: Aspirin 325 MG TAB PO SCH (09:45)
--- NOTE | 2019-03-04 11:25 | PDOC.CPN ---
- Subjective Date: 03/04/19 Time: 11:24 Interval history: Doing well no new issues. - Review of Systems General: denies: fever/chills, weight/appetite/sleep changes, night sweats, fatigue Respiratory: denies: cough, congestion, shortness of breath, exercise intolerance Cardiovascular: denies: chest pain, palpitation, edema, paroxysmal nocturnal dyspnea, orthopnea Gastrointestinal: denies: nausea, vomiting, diarrhea, constipation, abd pain, GI bleeding Musculoskeletal: denies: pain, tenderness, stiffness, swelling, arthritis/ arthralgias Neurological: denies: numbness, syncope, seizure, weakness - Objective Allergies/Adverse Reactions: Allergies Allergy/AdvReac Type Severity Reaction Status Date / Time No Known Drug Allergies Allergy Verified 03/02/19 08:53 Visit Medications: Current Medications Acetaminophen (Tylenol) 650 mg PO Q4H PRN PRN Reason: Headache/Fever/Mild Pain (1-3) Last Admin: 03/03/19 21:26 Dose: 650 mg Aspirin (Aspirin) 325 mg PO DAILY [facility] Last Admin: 03/04/19 09:45 Dose: 325 mg Atorvastatin Calcium (Lipitor) 40 mg PO HS [facility] Last Admin: 03/03/19 21:26 Dose: 40 mg Ondansetron HCl (Zofran Odt) 4 mg PO Q6H PRN PRN Reason: Nausea/Vomiting Vital Signs & Weight: Vital Signs Temp Pulse Resp BP Pulse Ox 03/04/19 09:42 98.6 F 77 16 120/79 96 03/04/19 04:00 97.9 F 75 16 120/73 99 03/04/19 00:00 98.1 F 79 16 125/80 99 Admit Weight 148 lb 9 oz Weight 148 lb 9 oz - Physical Exam General: alert & oriented x3 HEENT: mucus membranes moist, normocephaly Neck: midline trachea Cardiac: regular rate and rhythm Lungs: clear to auscultation, normal breath sounds Neuro: cranial nerve 2-12 intact Abdomen: active bowel sounds Extremities: no edema Skin: clear Musculoskeletal: no pain - Labs Result Diagrams: 03/01/19 12:36 03/01/19 12:36 Troponin/CKMB Troponin I Less than 0.010 ng/mL (< 0.028) 03/01/19 12:36 - Telemetry Sinus rhythms and dysrhythmias: sinus rhythm - Assessment/Plan Assessment/Plan: 1. Acute CVA PLAN: - KEILA to be done tomorrow to evaluate for shunts.
[2019-03-04] MEDS: Atorvastatin Calcium 40 MG TAB PO SCH (21:21)
[2019-03-04] MEDS: Acetaminophen 325 MG TAB PO PRN (21:21)
--- NOTE | 2019-03-05 06:02 | PDOC.FM ---
- Subjective Subjective: Denies any events overnight or sx this morning. Complains of continued intermittent dizziness and headache during the days. No new sx. Plan for CAESAR today, agreeable with possible DC following procedure pending results. - Objective Vital Signs & Weight: Vital Signs (12 hours) Temp Pulse Resp BP Pulse Ox 03/05/19 00:00 97.6 F 68 14 114/71 99 03/04/19 23:00 98 F 78 14 118/66 98 03/04/19 20:25 98.3 F 66 13 121/77 99 03/04/19 20:00 98 Weight Admit Weight 67.387 kg Weight 67.387 kg I&O: 03/03/19 03/04/19 03/05/19 06:59 06:59 06:59 Intake Total 840 1086 Balance 840 1086 Result Diagrams: 03/01/19 12:36 03/01/19 12:36 Phys Exam - Physical Examination Constitutional: NAD HEENT: moist MMs Neck: full ROM Respiratory: no wheezing, no rales, no rhonchi, clear to auscultation bilateral Cardiovascular: RRR, no significant murmur Gastrointestinal: soft, no distention Musculoskeletal: no edema, pulses present Neurological: moves all 4 limbs Psychiatric: normal affect, A&O x 3 Skin: no rash, cap refill <2 seconds Dx/Plan (1) Cerebellar stroke Code(s): I63.9 - CEREBRAL INFARCTION, UNSPECIFIED Status: Acute - Plan Plan: Right Cerebellar infarct -Neurosurg and neurology recommend asa and statin therapy alone -PT/OT -Cardiology: Dr. Stockton was consulted. Echo performed showing 2/3 diastolic dysfunction. Plans for CAESAR and bubble study to assess for shunt today - Likely will need some form of cardiac monitoring as outpt if source not identified -Telemetry continues to show NSR -Hypercoag panel pending Dispo: inpatient for CVA workup, CAESAR today, will continue to monitor Code: Full Diet: NPO until procedure PCP: CC Addendum - Attending - Attending Attestation Date/Time: 03/05/192004 I personally evaluated the patient and discussed the management with Dr. Miller I agree with the History, Examination, Assessment and Plan documented above with any addition or exceptions noted below. Caesar completed results pending.Patient will benefit from PT balance evaluation Dr Solis PMR et al as outpatient. Appreciate Cardiology recommendations.
[2019-03-05] MEDS ORDERED: Propofol 500 MG/50 ML VIAL ONE (08:39)
[2019-03-05] MEDS: Aspirin 325 MG TAB PO SCH (10:49)
[2019-03-05 11:46] VITALS: BP 109/70; TEMP 98.5
[2019-03-05 13:09] LABS: Protein C Activity 125 % (78-152)
[2019-03-05 13:48] LABS: HEX PHOS LA Tube 1 55.8 SEC; Hexagonal Phospholipid Neut 4.8 SEC (0-8.0)
[2019-03-05] MEDS ORDERED: Lidocaine 1% PF 5 ML VIAL ONE (14:04)
[2019-03-05] MEDS ORDERED: PROPOFOL 200 MG/20 ML VIAL ONE (14:04)
--- NOTE | 2019-03-06 05:21 | DIS ---
DATE OF ADMISSION: 03/01/2019 DATE OF DISCHARGE: 03/05/2019 ADMITTING ATTENDING: Dr. Raciel Riley. DISCHARGE ATTENDING: Dr. Dimitri Hill. RESIDENT: Dr. Oswaldo Miller. CONSULTS: 1. Cardiology, Dr. Freod Stockton. 2. Neurosurgery, Dr. Ezekiel Torres. 3. Neurology, Dr. Jori Montero. PROCEDURES: None. IMAGING: Brain CT without contrast. Findings; acute to subacute infarct involving the medial right cerebellar hemisphere, remote lacunar infarct involving the anterior left thalamus. Brain MRI with and without contrast. Findings; prominent area of acute infarction within the left inferomedial aspect of the right cerebellar hemisphere suggesting acute right PICA infarction. There are also small foci of acute infarction within the left BUSINESS CONTINUITY STRATEGY DIRECTOR territory. Enhancement of the cortex within the occipital lobe on the right side suggests subacute right BUSINESS CONTINUITY STRATEGY DIRECTOR infarction. These findings suggest multiple posterior circulation infarctions of varying ages. There is related mass effect on the fourth ventricle, which is mildly affected. CT [place] with contrast. Findings; no significant stenosis and unremarkable circulation. Echocardiogram; ejection fraction estimated at 55% to 60%, grade 2/3 diastolic dysfunction, trace mitral regurgitation, mild tricuspid regurgitation. Transesophageal echo and bubble study. Findings; no signs of shunt. PRIMARY DIAGNOSIS: Right cerebellar infarction, acute and chronic. DISCHARGE MEDICATIONS: 1. Acetaminophen 650 mg q.4 hours p.r.n. 2. Aspirin 325 mg daily. 3. Atorvastatin 40 mg daily. HISTORY OF PRESENT ILLNESS AND HOSPITAL COURSE: The patient is a 43-year-old male with no past medical history, who presented to the ED with complaints of dizziness, lightheadedness, and a posterior headache that began two weeks ago. CT of the head at that time showed acute to subacute infarction involving the right cerebellar hemispheres and remote lacunar infarcts. The patient received Plavix and was admitted to the stroke floor for continued monitoring and consultation. Neurosurgery was consulted, and Dr. Ezekiel Torres recommended that surgical intervention not be pursued at this time and recommended medical therapy for management. Neurology was also consulted, and Dr. Jori Montero agreed with Neurosurgery recommendations and recommended continued statin and anti-platelet therapy, although source of the patient's stroke was evaluated. Cardiology was consulted, and Dr. Stockton saw the patient and performed a transthoracic echo showing diastolic heart failure with an ejection fraction of 55% to 60%. Telemetry monitoring throughout the patient's stay showed normal sinus rhythm with no signs of dysrhythmia. Dr. Stockton then performed a transesophageal echo and bubble study to evaluate for possible shunts, which also resulted normal. Throughout the patient's stay, the patient continued to experience intermittent posterior headaches that were controlled with Tylenol as well as intermittent dizziness that was worse with standing and ambulation. The patient worked with PT and OT throughout his stay and was ambulating on his own at the time of discharge. The patient agreed to follow up with Cardiology as an outpatient to evaluate for any missed arrhythmias. The patient also agreed to establish with a PCP to obtain referrals for physical therapy on an outpatient basis. DISCHARGE INSTRUCTIONS: LOCATION: Home. DIET: Heart healthy. ACTIVITY: As tolerated. FOLLOWUP: PCP, [facility] within [address] Stockton as indicated. Job ID: [id number]
--- NOTE | 2019-03-06 16:07 | ECHO ---
DATE OF SERVICE: 03/05/19 PREPROCEDURE DIAGNOSIS: The patient is needing a KEILA to evaluate for shunts given his history of strokes. The Anesthesiology department provided with sedation for the patient. Please see their notes for det ails. After adequate sedation was achieved, transesophageal probe was inserted into the mouth and into the esophagus. Multiplanar views were obtained. Left ventricle is normal size, normal wall thickness. Systolic function is normal. Estimated EF at 50-55%. Left atrium is normal sized. Left atrial appendage is normal sized with normal velocities. No mass or thrombus. Right atrium is normal sized. No mass or thrombus. The right ventricle is normal size. Normal systolic function. Aortic valve is structurally normal. Three cusps. No stenosis or regurgitation. Mitral valve is structurally normal. There is only trace MR. Tricuspid valve is structurally normal. There is mild TR. Pulmonary valve is structurally normal. No stenosis or regurgitation. Interatrial septum is intact by color Doppler and by agitated saline study. Thoracic aorta is without atherosclerotic disease. CONCLUSIONS: 1. Normal LV systolic function, EF at 50-55%. 2. No masses or thrombus in any of the cardiac chambers. 3. Agitated saline study is negative for any intracardiac or pulmonary shunts. Thoracic aorta withou t pathology.
--- NOTE | 2019-03-07 07:41 | PQF ---
Oracio Wiledr GRADY *r [id number] CLINICAL DOCUMENTATION CLARIFICATION FORM: POST DISCHARGE Addendum to original discharge summary date: ____ Late entry note date: __ DATE:03/07/2019 ATTN:CHRISTOPHER DAVILA *r Please exercise your independent, professional judgment in responding to the clarification form. Clinical indicators are provided on the bottom of this form for your review Please check appropriate box(s): HEART FAILURE: [ ] Acute diastolic heart failure [ ] Acute on chronic diastolic heart failure [ x] Chronic diastolic heart failure [ ] Other diagnosis [ ] Unable to determine In addition, please specify: Present on Admission (POA): [ x] Yes [ ] No [ ] Unable to determine For continuity of documentation, please document condition throughout progress notes and discharge summary. Thank You. CLINICAL INDICATORS - SIGNS / SYMPTOMS / LABS Echocardiogram: Ejection fraction at 55% to 60 % grade 2/3 diastolic dysfunction , Trace mitral regurgitation , mild tricuspid regurgitation -Documented in Discharge summary on 03/05 by Oswaldo Miller DO Cardiology was consulted and Dr Stockton saw the patient and performed a transesophageal echo showing diastolic heart failure with an EF of 55% to 60%- Documented in Discharge summary on 03/05 by Oswaldo Miller DO RISKS: Stroke in both the occipital and cerebellar lobes suggesting possible cardioembolic event -Documented in consultation on 03/01 by Kylah Fong TREATMENTS: Plan-Aspirin and statin, Echocardiogram Documented in consultation on 03/01 by Kylah Fong Atorvastatin 40 mg daily -Documented in Discharge summary on 03/05 by Oswaldo Miller DO Cardiology was consulted and Dr Stockton-Documented in Discharge summary on 03/05 by Oswaldo Miller DO 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 All Rights Reserved [email or web address] [not provided] MTDD
--- NOTE | 2019-03-10 10:48 | EKG ---
Test Reason : Blood Pressure : / mmHG Vent. Rate : 066 BPM Atrial Rate : 066 BPM P-R Int : 142 ms QRS Dur : 086 ms QT Int : 378 ms P-R-T Axes : 038 033 035 degrees QTc Int : 396 ms Normal sinus rhythm Normal ECG Confirmed by SCOOTER DYER, COBY Strickland ([id number]), rewrite editor GASTON HUMMEL ([id number]) on 03/10/2019 10:48:16 AM Referred By: Confirmed By:COBY HELMS MD
--- NOTE | 2019-03-12 08:08 | PQF ---
Oracio Wilder GRADY *r [id number] CLINICAL DOCUMENTATION CLARIFICATION FORM: POST DISCHARGE related to ischemic CVA Addendum to original discharge summary date: ____ Late entry note date: __ DATE:03/12/2019 ATTN:CHRISTOPHER DAVILA Please exercise your independent, professional judgment in responding to the clarification form. Clinical indicators are provided on the bottom of this form for your review Please check appropriate box(s): [ ] Cerebral edema [ x ] Vasogenic edema [ ] Compression of brain [ ] Other diagnosis [ ] Unable to determine In addition, please specify: Present on Admission (POA): [ x ] Yes [ ] No [ ] Unable to determine For continuity of documentation, please document condition throughout progress notes and discharge summary. Thank You. CLINICAL INDICATORS - SIGNS / SYMPTOMS / LABS Patient presented to the ED with complaints of dizziness lightheadedness and a posterior headache that began two weeks ago-Documented in Discharge summary on 03/05 by Oswaldo Miller DO Brain CT without contrast-Findings acute to subacute infarct involving the medial right cerebellar hemisphere, remote lacunar infarct involving the anterior left thalamus-Documented in Discharge summary on 03/05 by Oswaldo Miller DO Brain MRI with and without contrast:Findings prominent area of acute infraction within the left inferomedial aspect of the right cerebellar hemisphere suggesting acute right PICA infarction. There are also small foci of acute infarction within the left INDUSTRIAL TRAINER territory.There is related mass effect on the fourth ventricle, which is mildly affected-Documented in Discharge summary on by Oswaldo Miller DO Right cerebellar infarction acute on chronic-Documented in Discharge summary on 03/05 by Oswaldo Miller DO RISK FACTORS Right cerebellar infarction acute on chronic-Documented in Discharge summary on 03/05 by Oswaldo Miller DO TREATMENTS: Consults: 1.Cardiology, Dr Fredo Stockton-Documented in Discharge summary on 03/05 by Oswaldo Miller DO 2.Neurosurgery, Dr Ezekiel Torres-Documented in Discharge summary on 03/05 by Oswaldo Miller DO 3.Neurology, Dr Jori Montero-Documented in Discharge summary on 03/05 by Oswaldo Miller DO Brain CT without contrast-Documented in Discharge summary on 03/05 by Oswaldo Miller DO Brain MRI with and without contrast-Documented in Discharge summary on 03/05 by Oswaldo Miller DO Discharge medication: Acetaminophen 650 mg q 4 hours p.r.n,Aspirin 325 mg daily , Atorvastatin 40 mg daily--Documented in Discharge summary on 03/05 by Oswaldo Miller DO 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 All Rights Reserved [email or web address] [not provided] MTDD
== END 2019-03-05 14:07 | disposition home or self-care (01) | DRG 64 ==
LOC: ERS 12:25 → 2SE 13:45
PROVIDERS: ADMIT Family Medicine; ATTEND Family Medicine
DX: I63.9 Cerebral infarction, unspecified (principal); G93.6 Cerebral edema; I50.32 Chronic diastolic (congestive) heart failure; R40.2362 Coma scale, best motor response, obeys commands, at arrival to emergency department; R40.2142 Coma scale, eyes open, spontaneous, at arrival to emergency department; R40.2252 Coma scale, best verbal response, oriented, at arrival to emergency department; I08.1 Rheumatic disorders of both mitral and tricuspid valves
CPT/HCPCS: 36415; 70450; 70496; 70498; 70553; 80053; 80061; 80306; 81240; 81241; 82550; 83036; 83090; 83880; 84443; 84484; 85025; 85240; 85300; 85303; 85305; 85307; 85379; 85598; 85610; 85730; 86147; 93005; 93306; 93312; 96365; 96375; A9579; J1200; J2001; J2704; J2765; Q9967

== ENCOUNTER 2019-04-20 09:44 | Inpatient (IN) | payer SELFPAY ==
[2019-04-20] MEDS ORDERED: Iopamidol-370 76% 500 ML 1 ML ONE (10:08)
--- NOTE | 2019-04-20 10:42 | CT ---
Head CT without contrast 04/20/2019: COMPARISON: 03/01/2019 HISTORY: Altered mental status, prior "strokes", vision changes and right sided headache TECHNIQUE: Axial CT imaging at 5 mm intervals from vertex through skull base without contrast FINDINGS: There is hypodensity within the inferior posterior aspect of the right cerebellar hemispher e, as seen on the prior exam, evidence of prior right-sided cerebellar infarction. There are new areas of loss of king-white differentiation involving bilateral occipital lobes, right more conspicuo us than left, consistent with cytotoxic edema on the basis of acute infarction. The distal aspect of the basilar artery is relatively hyperdense on axial image 7-9 which could represent distal basila r artery thrombus. IMPRESSION: Findings consistent with interval development of acute bilateral posterior cerebral arter y infarction, right more conspicuous than left. Hyperdensity overlies the region of the basilar artery distally, which could signify intra-arterial thrombus. Results called to Dr. Adame at 10:33 AM 04/20/2019.
[2019-04-20 10:51] LABS: #Eosinphils 0.1 thou/uL (0.0-0.7); #Lymphocytes 2.4 thou/uL (1.20-3.40); #Monocytes 0.4 thou/uL (0.11-0.59); #Neutrophils 4.1 thou/uL (1.40-6.50); %Basophils 0.3 % (0.0-1.0); %Eosinophils 0.8 % (0.0-10.0); %Lymphocytes 34.6 % (21.0-51.0); %Monocytes 5.4 % (0.0-10.0); %Neutrophils 58.9 % (42.0-75.0); Hemoglobin 14.3 g/dL (14.0-18.0); Mean Corpuscular HGB CONC 33.9 g/dL (32.0-36.0); Mean Corpuscular Hemoglobin 31.6 pg (27.0-31.0); Mean Corpuscular Volume 93.1 fL (78.0-98.0); Mean Platelet Volume 6.7 fL (7.4-10.4); Platelet Count 253 thou/uL (130-400); RBC Distribution Width 11.9 % (11.5-14.5); Red Blood Cell (RBC) Count 4.53 mill/uL (4.70-6.10)
[2019-04-20 11:23] LABS: ALT (SGPT) 31 U/L (8-55); AST (SGOT) 23 U/L (5-34); Albumin 4.5 g/dL (3.5-5.0); Alkaline Phosphatase 94 U/L (40-110); Anion Gap 13 mmol/L (10-20); BUN (Urea Nitrogen) 12 mg/dL (8.9-20.6); Bilirubin, Total 0.4 mg/dL (0.2-1.2); CK (CPK) 176 U/L (30-200); Calc. Creatinine Clearance 0 mL/min (70-130); Calcium 9.4 mg/dL (7.8-10.44); Carbon Dioxide 27 mmol/L (22-29); Chloride 106 mmol/L (98-107); Estimated GFR-MDRD Greater than 90; Globulin 2.8 g/dL (2.4-3.5); Glucose 103 mg/dL (70-105); Lipase 37 U/L (8-78); Potassium 3.8 mmol/L (3.5-5.1); Protein, Total 7.3 g/dL (6.0-8.3); Sodium 142 mmol/L (136-145)
--- NOTE | 2019-04-20 11:28 | CT ---
CT angiogram of the head: 04/20/2019 COMPARISON: 03/01/2019 HISTORY: Altered mental status, new bilateral posterior cerebral artery infarctions on head CT also p erformed 04/20/2019 TECHNIQUE: Axial CT imaging at 1.25 mm intervals from the skull base through the vertex with IV contr ast using CT angiogram protocol. Coronal and sagittal 3-D reformatted imaging obtained. FINDINGS: The distal vertebral arteries appear patent bilaterally. There is a focal area of contour i rregularity involving the distal right vertebral artery at the axial level of the C1 ring, best seen on axial image 29, sagittal image 36, and coronal image 61. This is stable when compared to the prior examination and may be related to focal atherosclerotic disease or vertebral artery dissection. The basilar artery is patent. No arterial filling defect is seen within the basilar artery. The poste rior cerebral arteries appear severely attenuated distally with probable bilateral distal BATCH STILL OPERATOR artery occlusion, correlating with the areas of interval development of probable infarction on recent CT. The visualized cervical ICA is patent. The A1 segment on the left is hypoplastic. Right A1 segment is patent. The distal anterior cerebral a rtery branches appear patent. The M1 segment appears patent and distal MCA branches appear unremarkable. No saccular aneurysm, high -grade stenosis, or vascular occlusion is seen involving the anterior circulation. IMPRESSION: Distal bilateral posterior cerebral arteries are markedly attenuated and likely occluded distally bilaterally, corresponding with the areas of concern for acute infarction within the posterior BATCH STILL OPERATOR territories on recent CT. Recommend brain MRI with and without contrast for further ass essment. There is no evidence for arterial thrombus within the basilar artery. There is mild irregularity of the distal vertebral artery on the right at the axial level of the C1 r ing. This could be related to an area of vertebral artery dissection. This appears similar when compared to prior imaging.
[2019-04-20] MEDS ORDERED: Ondansetron ODT 4 MG TAB SL PRN (12:00)
[2019-04-20] MEDS ORDERED: Ondansetron PF 4 MG/2 ML Vial IVP PRN ×2 (12:00→16:18)
[2019-04-20] MEDS ORDERED: Aspirin 325 MG TAB ONE (12:12)
[2019-04-20] MEDS ORDERED: Clopidogrel Bisulfate 75 MG TAB ONE (12:13)
[2019-04-20 12:14] LABS: Bilirubin Negative (Negative); Blood, Urine Negative (Negative); Clarity Clear (Clear); Glucose, Urine (Dipstick) Normal (Negative); Leukocyte Negative Leu/uL (Negative); Nitrite Negative (Negative); Protein, Urine (Dipstick) Negative (Neg-Trace); Urobilinogen Normal mg/dL (Less than 2)
--- NOTE | 2019-04-20 15:05 | HP ---
CHIEF COMPLAINT: Disorientation and visual problem, new onset. HISTORY OF PRESENT ILLNESS: The patient is a 43-year-old male, who had a new stroke in his brain in February and he was doing relatively well until a few days ago when he started having some problem with his vision and showing some disorientation in relatively familiar places, which was very new to him. 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 The family thought that maybe he was exposed to some chemical during this painting and they were hoping that this is going to get better or improve but it did not. Apparently he went to the architectural engineer and had a dilated eye examination and it was found that he had significant visual loss. He went to a [facility] on [facility] in [place]. He does not have any other complaints to offer. He does not have any weakness. He is able to eat. There is no any problem with his speech. PAST MEDICAL HISTORY: Positive only for previous CVA, cerebellar infarct. PAST SURGICAL HISTORY: None. FAMILY HISTORY: parents do not live in the [place] and he does not really know whether they have any medical problems. SOCIAL HISTORY: He does not smoke. He does not drink. He does not use any illicit drugs. ALLERGIES: NONE. PRIMARY CARE PHYSICIAN: Dr. Araya. Surrogate decision maker is his daughter, Aliza Short. REVIEW OF SYSTEMS: All 14 systems were reviewed and they were negative except for right-sided headaches, mainly in hoahaoism area. PHYSICAL EXAMINATION: VITAL SIGNS: Blood pressure is 117/82, pulse is 72, respirations 16, temperature is 98.2, O2 saturation 100% on room air. HEENT: His head is atraumatic and normocephalic. Eyes are PERRLA. Sclerae are nonicteric. Oral mucosa is moist. NECK: Supple. LUNGS: Clear. HEART: S1, S2 normal. No S3. No S4. No any murmur. ABDOMEN: Soft, nontender, nondistended. Bowel sounds are present. No organomegaly. EXTREMITIES: No clubbing, cyanosis, or edema. NEUROLOGIC: He is alert and oriented x4. There is no any motor or sensory deficits present. Cranial nerves are intact. Visual forman difficult to assess, but it looks like they are diminished in both eyes peripherally. SKIN: No rash or erythema. LABORATORY DATA: White count of 7.0, hemoglobin of 14.3, hematocrit 42.2, platelet count is 253,000. Normal chemistry. Troponin less than 0.010. Normal kidney function. Urinalysis within normal limits. EKG showed normal sinus rhythm with no ischemic changes, ventricular rate 83, personally reviewed by me. Brain CT was also personally reviewed by me. It showed acute bilateral posterior cerebral artery infarction, right more conspicuous than left; hyperdensity overlies the region of the basilar artery distally which could signify intra-arterial thrombus. CT of the venetie of He angiogram with contrast showed distal bilateral posterior cerebral arteries a markedly attenuated and likely occluded distally bilaterally corresponding with the areas of concern for acute infarction within the posterior FACILITY WORKER territories on recent CT. There was no evidence for any arterial thrombus within the basilar artery. There was mild irregularity of the distal vertebral artery on the right at the axial level of C1 ring. IMPRESSION: 1. Acute bilateral cerebrovascular accident. 2. History of cerebral CVA a few weeks ago. PLAN: Full admission to Stroke Unit. Condition is fair. Activity, bedrest and bathroom privileges with assistance. IV Hep-Lock. The case was discussed with emergency room doctor, . Apparently, he talked to Dr. Caraballo, interventional neurosurgeon who did not recommend any intervention at this point. He was started on a Plavix. We will continue Plavix and aspirin. He was given 75 mg of Plavix and 324 mg of aspirin. He was given 500 mL of sodium chloride 0.9% intravenously. We will do DVT prophylaxis with SCDs and we will get the neurologist on-call, Dr. Montero consulted, and we will continue his statin he was taking at home. Job ID: [id number]
[2019-04-20] MEDS ORDERED: D5 1/2 NS w/20 mEq KCL 1,000 ML IV SCH (16:15)
[2019-04-20] MEDS ORDERED: Acetaminophen 325 MG TAB PO PRN (16:18)
[2019-04-20 16:50] VITALS: BMI 25.4
[2019-04-20] MEDS: Atorvastatin Calcium 40 MG TAB PO SCH (21:43)
[2019-04-21 05:22] LABS: #Eosinphils 0.2 thou/uL (0.0-0.7); #Lymphocytes 2.5 thou/uL (1.20-3.40); #Monocytes 0.5 thou/uL (0.11-0.59); #Neutrophils 4.2 thou/uL (1.40-6.50); %Basophils 0.2 % (0.0-1.0); %Eosinophils 2.2 % (0.0-10.0); %Lymphocytes 34.3 % (21.0-51.0); %Monocytes 6.9 % (0.0-10.0); %Neutrophils 56.4 % (42.0-75.0); Hemoglobin 13.7 g/dL (14.0-18.0); Mean Corpuscular HGB CONC 33.9 g/dL (32.0-36.0); Mean Corpuscular Hemoglobin 31.7 pg (27.0-31.0); Mean Corpuscular Volume 93.6 fL (78.0-98.0); Mean Platelet Volume 6.9 fL (7.4-10.4); Platelet Count 232 thou/uL (130-400); RBC Distribution Width 11.9 % (11.5-14.5); Red Blood Cell (RBC) Count 4.33 mill/uL (4.70-6.10); White Blood Cell (WBC) Count 7.4 thou/uL (4.8-10.8)
[2019-04-21 05:30] LABS: Anion Gap 12 mmol/L (10-20); BUN (Urea Nitrogen) 12 mg/dL (8.9-20.6); Calc. Creatinine Clearance 96 mL/min (70-130); Carbon Dioxide 26 mmol/L (22-29); Chloride 104 mmol/L (98-107); Estimated GFR-MDRD 88; Glucose 103 mg/dL (70-105); Potassium 4.1 mmol/L (3.5-5.1); Sodium 138 mmol/L (136-145)
[2019-04-21] MEDS: Clopidogrel Bisulfate 75 MG TAB PO SCH (09:26)
[2019-04-21] MEDS: Aspirin 325 mg Enteric Coated Tablet PO SCH (09:26)
--- NOTE | 2019-04-21 11:22 | MRI ---
MRI BRAIN WITH AND WITHOUT CONTRAST: Date: 04/21/2019 INDICATION: Posterior cerebral artery infarcts. Comparison made to yesterday's CT brain, which revealed bilateral posterior cerebral artery infarctio ns. Correlation made to CTA head. Comparison made to the prior MRI brain of 03/01/2019. That exam revealed an acute infarct in the righ t cerebellar hemisphere consistent with an acute PICA infarct. There was restricted diffusion within this site at that time. TODAY'S FINDINGS: Diffusion-weighted images today showed new areas of restricted diffusion involving right posterior te mporal lobe. This resides in the resides in the right STAIN APPLICATOR distribution. The right cerebellar infarcti on noted previously no longer shows restricted diffusion. There is now volume loss at this site consi stent with interval evolution. There is evidence of infarct in the left STAIN APPLICATOR territory which appears subacute. There is no longer res tricted diffusion in the left occipital and posterior temporal region, however, there is now gyriform enhancement and increased gyral density on noncontrast T1 images which could represent petechial hem orrhage and possibly early laminar necrosis. The gyriform enhancement also indicates subacute time fr minesh. FLAIR sequence reveals increased signal in both posterior cerebral artery distributions involving pos terior temporal and occipital lobes bilaterally. Some residual gliosis in the right cerebellum at the site of prior infarct is present. IMPRESSION: 1. Restricted diffusion indicating acute/subacute infarct in right STAIN APPLICATOR territory in the right bottom stop attacher ior temporal and occipital region. 2. Subacute infarct in the left STAIN APPLICATOR territory involving left temporal and occipital region. There is evidence of petechial hemorrhage and gyriform enhancement. There is no longer restricted diffusion a t this site. 3. Evolving change with volume loss in the right cerebellar hemisphere at the site of the previously noted infarct of 03/01/2019. POS: [facility]
--- NOTE | 2019-04-21 12:46 | PDOC.HOSPP ---
- Subjective Encounter Date: 04/21/19 Encounter Time: 11:00 Subjective: has blurry vision but can move his eye in all directions, no weakness in extremities family at bedside - Objective Vital Signs & Weight: Vital Signs (12 hours) Temp Pulse Resp BP Pulse Ox 04/21/19 11:00 98.1 F 80 16 123/70 98 04/21/19 07:00 98.6 F 67 12 102/62 95 04/21/19 03:44 97.9 F 75 16 114/73 99 Weight Weight 148 lb 5 oz I&O: 04/20/19 04/21/19 04/22/19 06:59 06:59 06:59 Intake Total 240 240 Balance 240 240 Result Diagrams: 04/21/19 04:54 04/21/19 04:54 Hospitalist ROS - Medication Medications: Active Medications Generic Name Dose Route Start Last Admin Trade Name Freq PRN Reason Stop Dose Admin Aspirin 325 mg 04/21/19 09:00 04/21/19 09:26 Ecotrin PO 325 mg DAILY VIANNEY Administration Atorvastatin Calcium 40 mg 04/20/19 21:00 04/20/19 21:43 Lipitor PO 40 mg HS VIANNEY Administration Clopidogrel Bisulfate 75 mg 04/21/19 09:00 04/21/19 09:26 Plavix PO 75 mg DAILY VIANNEY Administration - Exam General Appearance: awake alert Eye: PERRL, anicteric sclera ENT: no oropharyngeal lesions, moist mucosa Neck: supple, no JVD Heart: RRR, no murmur Respiratory: no wheezes, no rales Gastrointestinal: soft, non-tender, non-distended, normal bowel sounds Extremities: no cyanosis, no edema Neurological: no weakness, vision deficit Psychiatric: normal affect, A&O x 3 Hosp A/P (1) Acute CVA (cerebrovascular accident) Code(s): I63.9 - CEREBRAL INFARCTION, UNSPECIFIED Status: Acute (2) H/O: CVA (cerebrovascular accident) Code(s): Z86.73 - PRSNL HX OF TIA (TIA), AND CEREB INFRC W/O RESID DEFICITS Status: Chronic (3) Dyslipidemia Code(s): E78.5 - HYPERLIPIDEMIA, UNSPECIFIED Status: Chronic - Plan Had right cerebellar and right thermal molder area cva on 03/01/2019 now has b/l thermal molder infarct affecting mostly vision last echo on 03/02/2019 showed ef of 55% with no obvious thrombus. recurrent cva with unclear etiology is on asp, plavix and lipitor await neurology opinion
--- NOTE | 2019-04-21 17:16 | CON ---
DATE OF CONSULTATION: 04/21/2019 CHIEF COMPLAINT: Vision problems. HISTORY OF PRESENT ILLNESS: History was obtained mostly through daughters help, she is bilingual. The patient is [place]ian-speaking only. I also reviewed his chart for his medical history. The patient had a stroke a month ago, and he was discharged home. His primary issues have been vision and balance problems. 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 He could not see or recognize his daughter. Tuesday was better, he drove his kids to the school and he did not know how to get back. He reported to her that his vision is worse. He is primarily here for vision difficulty. He was seen by an product safety administrator and he was told it was not an ophthalmologic reason. PREVIOUS MEDICAL HISTORY: The patient has had 2 CVAs in the past and there is no history of diabetes. The patient has no history of any hypertension either. PREVIOUS SURGICAL HISTORY: None. FAMILY HISTORY: Family does not live here. He has 4 brothers and 2 sisters. Parents are still alive. They are in their 70s and he does not know his family health history. SOCIAL HISTORY: He does not smoke or drink. No drug use. He lives with his family, his kids mostly. ALLERGIES: NO KNOWN DRUG ALLERGIES. REVIEW OF SYSTEMS: PULMONARY: Negative for shortness of breath or cough. GI: Negative for nausea, vomiting, or diarrhea. OPHTHALMOLOGIC: Positive for vision issues. DERMATOLOGIC: Negative for skin lesions. ENT: Negative for hearing problems. NEUROLOGIC: Positive for vision loss and balance problems. CARDIAC: Negative for chest pain or palpitations. CURRENT LABORATORY WORKUP: White count 7.4, hemoglobin 13.7, hematocrit 40.5, platelet count 232. His chemistry; sodium 138, potassium 4.1, chloride 104, bicarb 26, BUN 12, creatinine 0.93, glucose 103, and calcium 9. Urinalysis is negative. CT angiogram was reviewed. CT angiogram showed distal bilateral FLIGHT CONTROL TOWER OPERATOR attenuation and occlusion distally and corresponding with areas of concern for acute infarction within the FLIGHT CONTROL TOWER OPERATOR territories on the recent CT. There is also mild irregularity of distal vertebral artery on the right. It could be an area of vertebral artery dissection. This is similar to when compared to recent imaging studies. MRI of the brain was completed today and his MRI of the brain shows restricted diffusion indicating subacute infarct in the right FLIGHT CONTROL TOWER OPERATOR territory, in the right posterior temporal and occipital region, subacute infarct in the left FLIGHT CONTROL TOWER OPERATOR territory involving the left temporal and occipital region. There is evidence of petechial hemorrhage in gyriform enhancement and no longer restricted diffusion at this site and he also has evolving change in the volume loss in the right cerebellar region from a recent infarct. PHYSICAL EXAMINATION: VITAL SIGNS: Temperature 98.7, pulse 75, respiratory rate 16, and blood pressure 113/70. GENERAL APPEARANCE: Well-built, well-nourished man. CHEST: Clear vesicular breathing. CARDIOVASCULAR: S1 and S2 heard. No murmurs. ABDOMEN: Soft and nontender. No organomegaly noted. NEUROLOGIC: Higher intellectual functions. Normal orientation to time, place, and person. Appropriate conversation. Cranial nerves 2 through 12; pupils reactive to light bilaterally and visual issues abnormal with unconfrontation with mostly loss of temporal forman bilaterally, which is unusual, but is anatomically validated based on the bilateral posterior circulation infarct. Sensory exam; normal bilaterally on the face. No facial asymmetry noted. Tongue midline. No atrophy noted. Normal elevation of palate and hearing is normal. Motor examination; bulk normal. Tone normal. Strength 5/5 in the iliopsoas, hamstrings, quadriceps, ankle dorsiflexion, plantar flexion, deltoid, biceps, triceps, wrist extension and flexion, finger extension and flexion bilaterally. Deep tendon reflexes were absent. Sensory normal bilaterally to touch in upper and lower extremities. Cerebellar, normal [id number] and [id number]. Gait not tested. IMPRESSION: The patient with recurrent cerebrovascular accidents with a recent cerebellar artery event and now bilateral FLIGHT CONTROL TOWER OPERATOR events with loss of temporal forman of vision bilaterally, which is very concerning given his age, he is only 43 years old at this time, and he also has some vascular abnormalities. This is likely to be vascular etiology rather than any specific hypercoagulable state. I also saw that he recently had hypercoagulable workup in February with normal factor antithrombin III, but factor VIII activity is high. Factor V Leiden mutation was absent and he was also tested for factor V and antithrombin III and his thyroid is also normal when he did his recent workup. At this time, his primary concern would be recurrent cerebrovascular accidents in the absence of any hypercoagulable state and vascular disease such a young age. TREATMENT RECOMMENDATIONS: Please increase aspirin to 81 mg along with statin. Consult vascular surgery to see if anything can be done for his posterior circulation in order to prevent total occlusion of basilar in future. I do not think we can do much medically other than anti-platelet agents. He is already on aspirin and Plavix. Please call me if you any further questions. Job ID: [id number]
[2019-04-21] MEDS: Atorvastatin Calcium 40 MG TAB PO SCH (20:06)
[2019-04-22] MEDS: Aspirin 325 mg Enteric Coated Tablet PO SCH (09:50)
[2019-04-22] MEDS: Clopidogrel Bisulfate 75 MG TAB PO SCH (09:50)
[2019-04-22 11:35] LABS: HBCM Index 0.06 S/CO (0-0.79); HBSAg Index 0.23 S/CO (0-0.99); HIV (1/2) Antibody/Antigen Non-Reactive (NonReactive); HIV 1/2 INDEX 0.15 S/CO (<1.00); Hep A IgM AB Non-Reactive (NonReactive); Hep A IgM S/CO 0.34 S/CO (0-0.79); Hep B Surf Ag Non-Reactive S/CO (NonReactive); Hep C IgG Ab Non-Reactive (NonReactive); Hep C Index 0.07 S/CO (0-0.79); Hepatitis B Core IgM Abs Non-Reactive (NonReactive)
[2019-04-22 12:12] VITALS: BP 101/62; TEMP 98.8
--- NOTE | 2019-04-22 12:29 | CT ---
CTA NECK: Axial tomograms obtained with multiplanar reconstruction and 3D postprocessing following angio protoc ol with IV enhancement. INDICATION: Follow-up right vertebral artery. Correlation made to CTA head/neck dated 03/01/2019 and recent CTA head dated 04/20/2019. Patient has known posterior circulation infarcts. FINDINGS: The origin of the arch vessels unremarkable. Common carotid artery is unremarkable. Internal carotid arteries appear patent and symmetric with no significant atherosclerotic disease or stenosis. The vertebral arteries are patent. The left vertebral is mildly dominant. Prior exam described slight change in lumen at C1 in the right vertebral at the C1 level. This is aga in seen and is unchanged. Minimal narrowing of the distal lumen of the right vertebral as it terminat es in the basilar artery is again seen and is unchanged. IMPRESSION: Slight luminal irregularity of the distal right vertebral is again noted and is unchanged in appearan ce from the 04/20/2019 exam. POS: [facility]
[2019-04-22] MEDS ORDERED: Iopamidol-370 76% 500 ML 1 ML ONE (13:15)
--- NOTE | 2019-04-22 19:00 | DIS ---
DATE OF ADMISSION: 04/20/2019 DATE OF DISCHARGE: 04/22/2019 DISCHARGE DISPOSITION: To home. PRIMARY DISCHARGE DIAGNOSES: Acute cerebrovascular accident in bilateral posterior cerebral artery territories with visual defect. SECONDARY DISCHARGE DIAGNOSES: History of recent cerebrovascular accident in February, . PROCEDURES DONE DURING HOSPITALIZATION: CT brain without contrast on admission showed findings consistent with acute bilateral SECOND OFFICER infarct, right more conspicuous than left. CT angio of the head showed distal bilateral posterior cerebral arteries are markedly attenuated and likely occluded distally bilaterally. No evidence of arterial thrombus within the basilar artery. Mild irregularity of the distal vertebral artery on the right at the axial level of C1 ring. This could be related to an area of vertebral artery dissection. This appears similar to a prior CAT scan CT angio done in February. MRI brain with and without contrast showed restricted diffusion indicating acute/subacute infarct in right SECOND OFFICER territory in the right posterior temporal and occipital region, subacute infarct in the left SECOND OFFICER involving left temporal and occipital area. There is evidence of petechial hemorrhage and gyriform enhancement evolving change with volume loss in the right cerebellar hemisphere at the site of previously noted infarct of 03/01/2019. CT angio and neck showed slight luminal irregularity of the distal right vertebral, which is unchanged when compared to the prior CT angio. There is no significant atherosclerotic disease or stenosis of the internal carotid. H and H 13 and 40, platelet count 232, MCV is 93. BUN 12, creatinine 0.9. Liver enzymes within normal limits. First set of troponin is negative. Lipase 37. HIV I and II antigens are nonreactive. Acute hepatitis panel is nonreactive. DISCHARGE MEDICATION: 1. Aspirin 81 mg p.o. daily. 2. Plavix 75 mg p.o. daily. 3. Lipitor 40 mg p.o. at bedtime. ALLERGIES: NO KNOWN DRUG ALLERGIES. INPATIENT CONSULT: Dr. Sravan Morton for Neurology. BRIEF COURSE DURING HOSPITALIZATION: The patient initially came in with complaints of blurriness of vision and disorientation. 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 As his blurred vision did not improve, the brought him to the emergency room. He has had cerebellar infarct in February of this year. He has had a complete workup done including a transesophageal echo and transthoracic echo, which did not reveal any thrombus. The patient also had hypercoagulability workup done which was negative as well then. His ZAK with reflex has been ordered at present. A full neurology workup including MRI brain, CT brain, CT angio of the head and neck was obtained. He has also had a Neurology consultation with Dr. Sravan Morton. The patient has no motor deficits except for visual deficits. He still has blurry vision. He in fact had gone to see an admissions representative on Tuesday and was given a new prescription for glasses. Likely his visual disturbance is due to acute CVA. The there are no discernible causes for his recurrent CVA. He is hemodynamically stable and neurologically stable with no worsening during his stay here. I have given complete updates to the patient and his daughter, at bedside. He has been advised to be very careful with risk for falling and injury from blurriness of vision. The patient is also advised to change his profession if he was to continue working if his vision improves. Please note I have seen and examined the patient on the day of discharge. Job ID: [id number]
== END 2019-04-22 13:46 | disposition home or self-care (01) | DRG 66 ==
LOC: ERS 09:44 → 2SE 13:24
PROVIDERS: ADMIT Internal Medicine; ATTEND Internal Medicine
DX: I63.533 Cerebral infarction due to unspecified occlusion or stenosis of bilateral posterior cerebral arteries (principal); H53.8 Other visual disturbances; E78.5 Hyperlipidemia, unspecified; R29.703 NIHSS score 3; R40.2142 Coma scale, eyes open, spontaneous, at arrival to emergency department; R40.2362 Coma scale, best motor response, obeys commands, at arrival to emergency department; R40.2252 Coma scale, best verbal response, oriented, at arrival to emergency department; Z79.899 Other long term (current) drug therapy; Z79.01 Long term (current) use of anticoagulants; Z86.73 Personal history of transient ischemic attack (TIA), and cerebral infarction without residual deficits
CPT/HCPCS: 36415; 70450; 70496; 70498; 70551; 70553; 80048; 80053; 80074; 81003; 82550; 83690; 84484; 85025; 86038; 86225; 87389; 93005; 96360; Q9967

== ENCOUNTER 2020-01-21 02:05 | Emergency (ER) | payer SELFPAY ==
[2020-01-21 02:46] LABS: #Basophils 0.1 thou/uL (0.0-0.2); #Eosinphils 0.1 thou/uL (0.0-0.7); #Lymphocytes 2.4 thou/uL (1.20-3.40); #Monocytes 0.6 thou/uL (0.11-0.59); #Neutrophils 6.8 thou/uL (1.40-6.50); %Basophils 0.5 % (0.0-1.0); %Eosinophils 0.6 % (0.0-10.0); %Lymphocytes 23.8 % (21.0-51.0); %Neutrophils 69.1 % (42.0-75.0); Hemoglobin 16.6 g/dL (14.0-18.0); Mean Corpuscular HGB CONC 33.7 g/dL (32.0-36.0); Mean Corpuscular Hemoglobin 31.2 pg (27.0-31.0); Mean Corpuscular Volume 92.4 fL (78.0-98.0); Mean Platelet Volume 6.5 fL (7.4-10.4); Platelet Count 285 thou/uL (130-400); RBC Distribution Width 11.9 % (11.5-14.5); Red Blood Cell (RBC) Count 5.33 mill/uL (4.70-6.10); White Blood Cell (WBC) Count 9.9 thou/uL (4.8-10.8)
[2020-01-21 03:06] LABS: ALT (SGPT) 21 U/L (8-55); AST (SGOT) 23 U/L (5-34); Albumin 4.9 g/dL (3.5-5.0); Alkaline Phosphatase 84 U/L (40-110); Anion Gap 15 mmol/L (10-20); BUN (Urea Nitrogen) 17 mg/dL (8.9-20.6); Bilirubin, Total 0.8 mg/dL (0.2-1.2); CK (CPK) 375 U/L (30-200); Calc. Creatinine Clearance 0 mL/min (70-130); Calcium 9.8 mg/dL (7.8-10.44); Carbon Dioxide 25 mmol/L (22-29); Chloride 102 mmol/L (98-107); Estimated GFR-MDRD 86; Globulin 3.7 g/dL (2.4-3.5); Glucose 115 mg/dL (70-105); Lipase 36 U/L (8-78); Potassium 3.5 mmol/L (3.5-5.1); Protein, Total 8.6 g/dL (6.0-8.3); Sodium 138 mmol/L (136-145)
[2020-01-21 05:47] LABS: Troponin I Less than 0.010 ng/mL (< 0.028)
--- NOTE | 2020-01-21 08:11 | RAD ---
RADIOGRAPH CHEST 1 VIEW: DATE: 01/21/2020 HISTORY: 44-year-old male with chest pain FINDINGS: There are no airspace densities, pulmonary edema, pneumothorax, or cardiomegaly. The lateral costophr enic angles are sharp. IMPRESSION: No acute cardiopulmonary findings.
== END 2020-01-21 05:58 | disposition home or self-care (01) ==
LOC: ERS 02:05
DX: R07.2 Precordial pain (principal); Z86.73 Personal history of transient ischemic attack (TIA), and cerebral infarction without residual deficits
CPT/HCPCS: 36415; 71045; 80053; 82550; 83690; 84484; 85025; 93005

== ENCOUNTER 2021-04-19 23:59 | Emergency (ER) | payer SELFPAY | END 2021-04-20 02:31 | disposition home or self-care (01) | LOC: ERS 23:59 | DX: R51.9 Headache, unspecified (principal); Z86.73 Personal history of transient ischemic attack (TIA), and cerebral infarction without residual deficits; Z79.899 Other long term (current) drug therapy | CPT/HCPCS: 96365; 96366; 96375 ==